=== PATIENT | male | born 1970 | race African-American/Black ===

== ENCOUNTER 2020-02-28 | Emergency (ER) | payer SELFPAY ==
[~2020-02-28] MED LIST: AMLODIPINE5 MG PO; BACTRIM DS1 TAB PO; FLEXERIL OR; HYDROCHLOROT25 MG PO; KEFLEX500 M1 PO; MELOXICAM7.5 MG PO; ULTRAM50 M1 PO
[2020-02-28] MEDS ORDERED: NORVASC5 M1 PO (09:49)
[2020-02-28] MEDS ORDERED: CEPHALEXIN500 M1 PO (10:37)
== END 2020-02-28 10:39 | disposition home or self-care (01) | DRG 605 ==
PROC: 0HQFXZZ Repair Right Hand Skin, External Approach (ICD-10-PCS; principal; 2020-02-28)
DX: S61.210A Laceration without foreign body of right index finger without damage to nail, initial encounter (principal); I10 Essential (primary) hypertension; W26.0XXA Contact with knife, initial encounter; Y93.89 Activity, other specified; Y92.009 Unspecified place in unspecified non-institutional (private) residence as the place of occurrence of the external cause

== ENCOUNTER 2020-04-08 14:37 | Emergency (ER) | payer SELFPAY ==
[~2020-04-08] VITALS: Ht 172.7 cm; Wt 100.0 kg
[~2020-04-08 14:37] MED LIST changes: +CEPHALEXIN500 M1 PO; +NORVASC5 M1 PO
[2020-04-08 15:35] LABS: HEMATOCRIT 43.4 % (39.0-50.0); HEMOGLOBIN 14.6 g/dl (14.0-18.0); MEAN CELL VOLUME 85.4 fL CALC (80.0-100.0); MEAN CORPUSCULAR HGB 28.7 pG CALC (26.0-32.0); MEAN CORPUSCULAR HGB CONC 33.6 g/dL CAL (32.0-36.0); NEUT# 2.16 thou/uL (1.82-7.42); RED BLOOD COUNT 5.08 mill/uL (4.70-6.10); RED CELL DISTRI WIDTH 13.6 % (11.5-15.5)
[2020-04-08 15:54] LABS: ALBUMIN 4.4 g/dL (3.2-5.0); ALKALINE PHOSPHATASE 57 u/l (38-126); AMYLASE 72 u/l (30-110); BUN 8 mg/dL (9-20); BUN/CREATININE RATIO 8 (12-20 (CALC)); CARBON DIOXIDE 26 mmol/l (22-30); CHLORIDE 100 mmol/l (95-108); GFR > 60 ML/MIN (>=60 (CALC)); GFR FOR AFR.AMER. > 60 ML/MIN (>=60 (CALC)); LIPASE 98 u/l (23-300); POTASSIUM 4.1 mmol/l (3.5-5.1); SGOT/AST 28 u/l (17-59); TOTAL PROTEIN 8.1 g/dL (6.3-8.2)
[2020-04-08 15:57] LABS: ANION GAP 13 (6-22 (CALC)); BILIRUBIN, TOTAL 0.6 mg/dL (0.0-1.4); SODIUM 135 mmol/l (137-146)
[2020-04-08 16:25] LABS: URINE BILIRUBIN - DIPSTICK NEGATIVE (NEGATIVE); URINE BLOOD DIPSTICK NEGATIVE (NEGATIVE); URINE COLOR YELLOW; URINE GLUCOSE - DIPSTICK NEGATIVE (NEGATIVE); URINE KETONE NEGATIVE (NEGATIVE); URINE LEUK ESTERASE NEGATIVE (NEGATIVE); URINE NITRITE - DIPSTICK NEGATIVE (Negative); URINE PH 5.5 (4.5-8.0); URINE PROTEIN - DIPSTICK NEGATIVE (NEG-TRACE); URINE SPECIFIC GRAVITY 1.015; URINE UROBILINOGEN - DIPSTICK 0.2 E.U./dL (0.2)
[2020-04-08 18:44] VITALS: BP 150/97
--- NOTE | 2020-04-12 19:57 | NUR ---
Spoke with patient via phone. Patient aware of Covid results (positive) and has been contacted by [facility]. Patient states he has no symptoms at this time and is aware of quarantine restrictions. Advised patient to return to ED with SOB or other urgent needs. patient verbalizes understanding.
== END 2020-04-08 18:35 | disposition home or self-care (01) | DRG 179 ==
LOC: ED 14:37
PROVIDERS: Emergency Medicine
DX: U07.1 COVID-19 (principal); I10 Essential (primary) hypertension